=== PATIENT | male | born 1940 | race Caucasian/White ===

== ENCOUNTER 2017-01-25 07:07 | Observation (INO) | payer OTHER ==
[~2017-01-25] VITALS: Ht 180.3 cm; Wt 65.8 kg
[2017-01-25 08:18] LABS: HEMOGLOBIN 13.3 gm/dl (14.0-17.5); RED BLOOD COUNT 4.52 M/UL (4.20-5.50); WHITE BLOOD COUNT 9.6 K/UL (4.5-11.0)
[2017-01-25 08:27] LABS: BUN/CREATININE RATIO 19 (0-10)
[2017-01-25] MEDS ORDERED: NORVASC 5 MG TAB5 MG PO (12:34)
[2017-01-25] MEDS ORDERED: ASPIRIN EC81 MG PO (12:35)
[2017-01-25] MEDS ORDERED: BENEFIBER1 EAC1 PO (12:36)
[2017-01-25] MEDS ORDERED: ARICEPT5 MG PO (12:36)
[2017-01-25] MEDS ORDERED: PROTONIX40 MG PO (12:37)
[2017-01-25] MEDS ORDERED: AVODART 0.5 MG0.5 MG PO (12:37)
[2017-01-25] MEDS ORDERED: MIRALAX17 GM PO (12:38)
[2017-01-25] MEDS ORDERED: PRAVASTATIN SOD10 MG PO (12:38)
[2017-01-25] MEDS ORDERED: PROAIR HFA8.5 GM INH (12:39)
[2017-01-25] MEDS ORDERED: FLOMAX0.4 MG PO (12:39)
[2017-01-25] MEDS ORDERED: KLONOPIN TAB 00.5 MG PO (12:41)
[2017-01-25] MEDS ORDERED: ABILIFY2 MG PO (12:42)
[2017-01-25 20:35] LABS: ADENOVIRUS F 40/41 Not Detected (Negative); ASTROVIRUS Not Detected (Negative); CAMPYLOBACTER Not Detected (Negative); CLOSTRIDIUM DIFFICILE TOX A/B Not Detected (Negative); CRYPTOSPORIDIUM Not Detected (Negative); E.COLI 0157 Not Detected (Negative); ENTAMOEBA HISTOLYTICA Not Detected (Negative); ENTEROAGGREGATIVE E.COLI (EAEC Not Detected (Negative); ENTEROPATHOGENIC E.COLI (EPEC) Not Detected (Negative); ENTEROTOXIGENIC E.COLI (ETEC) Not Detected (Negative); GIARDIA LAMBLIA Not Detected (Negative); NOROVIRUS GI/GII Not Detected (Negative); PLESIOMONAS SHIGELLOIDES Not Detected (Negative); ROTOVIRUS A Not Detected (Negative); SALMONELLA Not Detected (Negative); SAPOVIRUS Not Detected (Negative); SHIG/ENTEROINVAS.ECOLI (EIEC) Not Detected (Negative); SHIGA-LIK TOX.PRO.E.COLI (STEC Not Detected (Negative); VIBRIO Not Detected (Negative); VIBRIO CHOLERAE Not Detected (Negative); YERSINIA ENTEROCOLITICA Not Detected (Negative)
[2017-01-26 05:36] LABS: HEMOGLOBIN 14.3 gm/dl (14.0-17.5); RED BLOOD COUNT 4.8 M/UL (4.20-5.50)
[2017-01-26 05:49] LABS: BUN/CREATININE RATIO 14 (0-10)
[2017-01-27 04:59] LABS: HEMOGLOBIN 13.1 gm/dl (14.0-17.5); RED BLOOD COUNT 4.41 M/UL (4.20-5.50)
[2017-01-27 05:16] LABS: BUN/CREATININE RATIO 27 (0-10)
[2017-01-29 05:49] LABS: HEMOGLOBIN 13.6 gm/dl (14.0-17.5); RED BLOOD COUNT 4.55 M/UL (4.20-5.50); WHITE BLOOD COUNT 7.9 K/UL (4.5-11.0)
[2017-01-29 06:03] LABS: BUN/CREATININE RATIO 25 (0-10)
[2017-01-29] MEDS ORDERED: HABITROL 21 MG P1 EA TD (14:14)
[2017-01-29] MEDS ORDERED: SEROQUEL50 MG PO (14:18)
== END 2017-01-29 14:56 | disposition home or self-care (01) ==
LOC: ER1 07:07 → M/S 11:14 → ZEROF 11:14 → M/S 11:50
PROVIDERS: Emergency Medicine; Family Medicine; ADMIT Family Medicine
DX: G93.40 Encephalopathy, unspecified (principal); R41.0 Disorientation, unspecified; E78.5 Hyperlipidemia, unspecified; A04.5 Campylobacter enteritis; J18.9 Pneumonia, unspecified organism; N40.0 Benign prostatic hyperplasia without lower urinary tract symptoms; I10 Essential (primary) hypertension; F32.9 Major depressive disorder, single episode, unspecified; G30.9 Alzheimer's disease, unspecified; D64.9 Anemia, unspecified; R19.7 Diarrhea, unspecified; F17.210 Nicotine dependence, cigarettes, uncomplicated; Z88.2 Allergy status to sulfonamides; Z79.82 Long term (current) use of aspirin; Z79.899 Other long term (current) drug therapy
CPT/HCPCS: 36415; 70450; 70551; 71010; 71020; 80048; 80053; 81001; 82140; 82550; 82553; 82607; 82746; 83735; 83874; 84153; 84443; 84484; 85025; 85027; 86140; 86618; 86780; 87040; 87086; 87507; 89055; 93005; 94640; 95819; 96372; 99285; G0378; J1630; J1650; J3486

== ENCOUNTER 2020-07-30 08:56 | Inpatient (IN) | payer OTHER ==
[~2020-07-30] VITALS: Ht 182.9 cm; Wt 52.2 kg
[~2020-07-30 08:56] MED LIST: ABILIFY2 MG PO; ARICEPT5 MG PO; ASPIRIN EC81 MG PO; AVODART 0.5 MG0.5 MG PO; BENEFIBER1 EAC1 PO; FLAGYL500 MG PO; FLOMAX0.4 MG PO; HABITROL 21 MG P1 EA TD; KLONOPIN TAB 00.5 MG PO; LEVAQUIN500 MG PO; MIRALAX17 GM PO; NORVASC 5 MG TAB5 MG PO; POTASSIUM CHLO10 MEQ PO; PRAVASTATIN SOD10 MG PO; PROAIR HFA8.5 GM INH
[2020-07-30 09:46] LABS: HEMOGLOBIN 11.7 gm/dl (14.0-17.5); RED BLOOD COUNT 3.83 M/UL (4.20-5.50); WHITE BLOOD COUNT 9.5 K/UL (4.5-11.0)
[2020-07-30 10:14] LABS: BUN/CREATININE RATIO 22 (0-10)
[2020-07-30] MEDS ORDERED: NAMENDA10 MG PO (11:34)
[2020-07-30] MEDS ORDERED: ZOLOFT50 MG PO (11:34)
[2020-07-30] MEDS ORDERED: MELATONIN5 MG PO (11:35)
[2020-07-30] MEDS ORDERED: PROTONIX40 MG PO (12:37)
[2020-07-30] MEDS ORDERED: SEROQUEL50 MG PO (14:18)
[2020-07-31 02:30] LABS: HEMOGLOBIN 12.3 gm/dl (14.0-17.5); RED BLOOD COUNT 4.12 M/UL (4.20-5.50); WHITE BLOOD COUNT 10.6 K/UL (4.5-11.0)
[2020-07-31 02:52] LABS: BUN/CREATININE RATIO 30 (0-10)
[2020-08-01 03:00] LABS: HEMOGLOBIN 11.6 gm/dl (14.0-17.5); RED BLOOD COUNT 3.86 M/UL (4.20-5.50)
[2020-08-01 03:02] LABS: WHITE BLOOD COUNT 13.3 K/UL (4.5-11.0)
[2020-08-01 03:17] LABS: BUN/CREATININE RATIO 39 (0-10)
[2020-08-02 03:07] LABS: HEMOGLOBIN 11.1 gm/dl (14.0-17.5); RED BLOOD COUNT 3.65 M/UL (4.20-5.50)
[2020-08-02 03:08] LABS: WHITE BLOOD COUNT 9.9 K/UL (4.5-11.0)
[2020-08-02 03:24] LABS: BUN/CREATININE RATIO 49 (0-10)
[2020-08-03 03:17] LABS: HEMOGLOBIN 12.5 gm/dl (14.0-17.5)
[2020-08-03 03:18] LABS: RED BLOOD COUNT 4.1 M/UL (4.20-5.50); WHITE BLOOD COUNT 17.6 K/UL (4.5-11.0)
[2020-08-03 03:40] LABS: BUN/CREATININE RATIO 60 (0-10)
--- NOTE | 2020-08-03 04:31 | NUR ---
2209 SON CALLED WONDERING HOW HIS DAD WAS DOING INSTRUCTED HIM PT WAS COMBATIVE HITTING STAFF AND REFUSED NIGHT TIME MEDS. SON STATES HE WILL TAKE THE SEROQUEL AND MELANTOIN AND GO TO SLEEP. INSTRUCTED SON THAT PT REFUSED MEDS AND HAD ORDERED SOME GEODON.
[2020-08-04 04:16] LABS: HEMOGLOBIN 11.2 gm/dl (14.0-17.5); RED BLOOD COUNT 3.78 M/UL (4.20-5.50); WHITE BLOOD COUNT 14.7 K/UL (4.5-11.0)
[2020-08-04 04:24] LABS: BUN/CREATININE RATIO 69 (0-10)
--- NOTE | 2020-08-04 08:56 | NUR ---
PATIENT NOTED TO JUDY INTO THE 30'S WHEN HE FALLS ASLEEP. WAS CONTACTED AND GAVE A VERBAL ORDER TO HOLD MORNING STEROID DOSE. PATIENTS VITALS ARE STABLE OTHERWISE. PATIENT IS IN NO DISTRESS AT THIS TIME. WILL CONTINUE TO MONITOR AND FOLLOW PLAN OF CARE.
--- NOTE | 2020-08-05 18:07 | NUR ---
REPORT CALLED TO STEPHANI RAMIRES IN PCU AT THIS TIME.
[2020-08-06 04:01] LABS: HEMOGLOBIN 11.1 gm/dl (14.0-17.5); RED BLOOD COUNT 3.66 M/UL (4.20-5.50)
[2020-08-06 04:09] LABS: WHITE BLOOD COUNT 10.5 K/UL (4.5-11.0)
[2020-08-06 04:41] LABS: BUN/CREATININE RATIO 64 (0-10)
[2020-08-07 04:26] LABS: BUN/CREATININE RATIO 61 (0-10)
[2020-08-08 03:49] LABS: BUN/CREATININE RATIO 55 (0-10)
[2020-08-09 04:19] LABS: HEMOGLOBIN 10.7 gm/dl (14.0-17.5); RED BLOOD COUNT 3.51 M/UL (4.20-5.50); WHITE BLOOD COUNT 11.9 K/UL (4.5-11.0)
[2020-08-09 04:34] LABS: BUN/CREATININE RATIO 49 (0-10)
== END 2020-08-09 05:18 | disposition expired | DRG 871 ==
LOC: ER1 08:56 → CDU 10:48 → M/S 10:48 → PROG CARE 15:28 → M/S 08-02 18:07 → PROG CARE 08-05 20:05
PROVIDERS: Emergency Medicine; Internal Medicine; ADMIT Internal Medicine
PROC: XW033E5 Introduction of Remdesivir Anti-infective into Peripheral Vein, Percutaneous Approach, New Technology Group 5 (ICD-10-PCS; 2020-07-30)
PROC: 8E0ZXY6 Isolation (ICD-10-PCS; 2020-07-30)
PROC: XW13325 Transfusion of Convalescent Plasma (Nonautologous) into Peripheral Vein, Percutaneous Approach, New Technology Group 5 (ICD-10-PCS; principal; 2020-07-31)
PROC: 0DH67UZ Insertion of Feeding Device into Stomach, Via Natural or Artificial Opening (ICD-10-PCS; 2020-08-07)
PROC: 3E0G76Z Introduction of Nutritional Substance into Upper GI, Via Natural or Artificial Opening (ICD-10-PCS; 2020-08-07)
PROC: 0BH17EZ Insertion of Endotracheal Airway into Trachea, Via Natural or Artificial Opening (ICD-10-PCS; 2020-08-09)
PROC: 5A1935Z Respiratory Ventilation, Less than 24 Consecutive Hours (ICD-10-PCS; 2020-08-09)
PROC: 05HM33Z Insertion of Infusion Device into Right Internal Jugular Vein, Percutaneous Approach (ICD-10-PCS; 2020-08-09)
PROC: B543ZZA Ultrasonography of Right Jugular Veins, Guidance (ICD-10-PCS; 2020-08-09)
PROC: 3E033XZ Introduction of Vasopressor into Peripheral Vein, Percutaneous Approach (ICD-10-PCS; 2020-08-09)
DX: A41.89 Other specified sepsis (principal); U07.1 COVID-19; J12.82 Pneumonia due to coronavirus disease 2019; J96.01 Acute respiratory failure with hypoxia; G93.41 Metabolic encephalopathy; E43 Unspecified severe protein-calorie malnutrition; R65.21 Severe sepsis with septic shock; Z68.1 Body mass index [BMI] 19.9 or less, adult; E87.0 Hyperosmolality and hypernatremia; E87.1 Hypo-osmolality and hyponatremia; F03.90 Unspecified dementia, unspecified severity, without behavioral disturbance, psychotic disturbance, mood disturbance, and anxiety; E86.0 Dehydration; I46.9 Cardiac arrest, cause unspecified; I10 Essential (primary) hypertension; E87.6 Hypokalemia; R73.9 Hyperglycemia, unspecified; R00.1 Bradycardia, unspecified; N40.0 Benign prostatic hyperplasia without lower urinary tract symptoms; Z79.82 Long term (current) use of aspirin; Z79.899 Other long term (current) drug therapy; Z88.2 Allergy status to sulfonamides; Z87.891 Personal history of nicotine dependence
CPT/HCPCS: 0240U; 31500; 36415; 36600; 70450; 71045; 80048; 80053; 81001; 82140; 82550; 82553; 82803; 83605; 83874; 83880; 84132; 84484; 85025; 85027; 85379; 86900; 86901; 86927; 87040; 87081; 87086; 92526; 92610; 92950; 93005; 94002; 94640; 94760; 96365; 96366; 96367; 96375; 97161; 99285; G0008; J0171; J0692; J1100; J1630; J1650; J2704; J3480; J3486; J7030; J7042; J7070; Q9967